=== PATIENT | female | born 2000 | race Caucasian/White ===

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

== ENCOUNTER 2018-03-02 17:22 | Emergency (ER) | payer OTHER, MEDICAID | END 2018-03-02 17:39 | disposition home or self-care (01) | LOC: M ED 17:22 | DX: Z32.01 Encounter for pregnancy test, result positive (principal) | CPT/HCPCS: 81025 ==

== ENCOUNTER → 2018-04-04 | Outpatient (CLI) | payer OTHER ==
[2018-04-04 10:40] LABS: BASO % 0.3 % (0.0-1.0); EOS # 0.1 10^3/uL (0.0-0.50); EOS % 1.2 % (0.0-3.0); HEMATOCRIT 38.8 % (36.0-47.0); HEMOGLOBIN 12.9 g/dl (12.0-15.5); IMMATURE GRANULOCYTE % 0.2 % (0-3.0); LYMPH # 2.7 10^3/uL (1.5-6.5); LYMPH % 28.9 % (24.0-44.0); MEAN CORPUSCULAR HEMOGLOBIN 28.2 pg (27.0-33.0); MEAN CORPUSCULAR HGB CONC 33.2 g/dl (32.0-36.5); MEAN CORPUSCULAR VOLUME 84.7 fl (80.0-96.0); MONO # 0.5 10^3/uL (0.0-0.8); MONO % 5.8 % (0.0-5.0); NEUTROPHILS % 63.6 % (36.0-66.0); PLATELET COUNT, AUTOMATED 269 10^3/uL (150-450); RED BLOOD COUNT 4.58 10^6/uL (4.00-5.40); WHITE BLOOD COUNT 9.4 10^3/uL (4.0-10.0)
[2018-04-04 11:09] LABS: ALBUMIN 3.3 GM/DL (3.2-5.2); ALBUMIN/GLOBULIN RATIO 0.92 (1.00-1.93); ALKALINE PHOSPHATASE 54 U/L (45-117); ALT/SGPT 17 U/L (12-78); ANION GAP 9 MEQ/L (8-16); AST/SGOT 9 U/L (7-37); BILIRUBIN,TOTAL 0.2 MG/DL (0.2-1.0); BLOOD UREA NITROGEN 5 MG/DL (7-18); CALCIUM LEVEL 8.6 MG/DL (8.5-10.1); CARBON DIOXIDE LEVEL 24 MEQ/L (21-32); CHLORIDE LEVEL 109 MEQ/L (98-107); CREATININE FOR GFR 0.59 MG/DL (0.55-1.30); FREE T4 1.07 NG/DL (0.78-1.33); GLUCOSE CHALLENGE TEST 1 HOUR 77 MG/DL (LESS THAN 140); GLUCOSE, FASTING 77 MG/DL (70-100); POTASSIUM SERUM 3.7 MEQ/L (3.5-5.1); SODIUM LEVEL 142 MEQ/L (136-145); THYROID STIMULATING HORMONE 0.581 uIU/ML (0.463-3.98); TOTAL PROTEIN 6.9 GM/DL (6.4-8.2)
[2018-04-04 11:15] LABS: ESTIMATED AVERAGE GLUCOSE 108 MG/DL (60-110); HEMOGLOBIN A1c 5.4 %
[2018-04-04 11:21] LABS: RUBELLA IgG QUALITATIVE IMMUNE (IMMUNE)
[2018-04-04 11:22] LABS: HBsAg Prenatal NEGATIVE (NEGATIVE)
[2018-04-04 11:50] LABS: HEPATITIS C VIRUS ABY INDEX 0.3 INDEX (<0.8); HIV 1&2 SCREEN CENTAUR NEGATIVE (NEGATIVE)
[2018-04-04 12:09] LABS: CHLAMYDIA DNA AMPLIFICATION NEGATIVE (NEGATIVE); GC DNA AMPLIFICATION NEGATIVE (NEGATIVE)
== END ==
LOC: M LAB 08:40
DX: Z36.89 Encounter for other specified antenatal screening (principal); Z3A.09 9 weeks gestation of pregnancy
CPT/HCPCS: 82950

== ENCOUNTER → 2018-06-06 | Outpatient (CLI) | payer OTHER | LOC: M RAD 15:26 | DX: Z34.82 Encounter for supervision of other normal pregnancy, second trimester (principal); Z36.89 Encounter for other specified antenatal screening; Z3A.18 18 weeks gestation of pregnancy | CPT/HCPCS: 76811 ==

== ENCOUNTER → 2018-07-17 | Outpatient (CLI) | payer OTHER | LOC: M RAD 10:07 | DX: O32.1XX0 Maternal care for breech presentation, not applicable or unspecified (principal); Z36.89 Encounter for other specified antenatal screening; Z3A.24 24 weeks gestation of pregnancy; O28.8 Other abnormal findings on antenatal screening of mother | CPT/HCPCS: 76816 ==

== ENCOUNTER → 2018-08-13 | Outpatient (CLI) | payer OTHER ==
[2018-08-13 13:24] LABS: HEMATOCRIT 36.2 % (36.0-47.0); MEAN CORPUSCULAR HEMOGLOBIN 29.7 pg (27.0-33.0); MEAN CORPUSCULAR HGB CONC 33.1 g/dl (32.0-36.5); MEAN CORPUSCULAR VOLUME 89.6 fl (80.0-96.0); PLATELET COUNT, AUTOMATED 294 10^3/uL (150-450); RED BLOOD COUNT 4.04 10^6/uL (4.00-5.40); RED CELL DISTRIBUTION WIDTH 12.7 % (11.5-14.5); WHITE BLOOD COUNT 12.6 10^3/uL (4.0-10.0)
[2018-08-14 08:15] LABS: TYPE AND SCREEN 1 1
== END ==
LOC: M SMT 11:36
DX: Z36.89 Encounter for other specified antenatal screening (principal)
CPT/HCPCS: 85027

== ENCOUNTER → 2018-09-17 | Outpatient (CLI) | payer OTHER ==
[~2018-09-17] MED LIST: AUGM500T34 PO; EMER1CHW PO; MEDR1VL IM; NORCOTAB PO; PRENTAB7 PO; SUCR1TA PO
--- NOTE | 2018-09-17 10:01 | REP ---
OBSTETRIC SONOGRAPHY: HISTORY: Supervision of . Size date discrepancy, size greater than dates. FINDINGS: Scanning through the gravid uterus demonstrates a viable single intrauterine gestation in a cephalic lie. motion is observed and heart rate is recorded at 135 beats per minute. Anterior grade 2 placenta is seen without evidence of previa or abruption. Amniotic fluid is subjectively normal. Closed cervical length is 4.0 cm. No extrauterine abnormalities observed. There has been appropriate interval growth since prior exam. Biometry Chart: BPD 8.7 cm = 35 weeks 1 day HC 31.3 cm = 35 weeks 0 days AC 32.1 cm = 36 weeks 0 days FL 6.5 cm = 33 weeks 4 days HL 5.8 cm = 33 weeks 4 days HC/AC ratio normal 0.1. Cephalic index normal 0.79. Estimated weight 2612 grams, 5 pounds 12 ounces, 76th percentile for 33 weeks 4 days. DMITRI 19.6 cm. IMPRESSION: Viable single intrauterine gestation at 34 weeks 5 days by today's composite sonographic criteria. Expected gestational age estimate based on prior sonography is 34 weeks 6 days. YESSICA by prior sonography October 23, 2018. There is evidence of appropriate interval growth. Electronically Signed by Gunnar Kulkarni MD 09/17/2018 10:22 A
== END ==
LOC: M RAD 08:34
PROVIDERS: ATTEND Advanced Practice Midwife
DX: O26.843 Uterine size-date discrepancy, third trimester (principal); Z3A.34 34 weeks gestation of pregnancy

== ENCOUNTER → 2018-10-02 | Outpatient (REF) | payer OTHER ==
[~2018-10-02] MED LIST changes: +MAPA500T2 PO
== END ==
LOC: M LAB REF 13:39
PROVIDERS: ATTEND Advanced Practice Midwife
DX: Z34.83 Encounter for supervision of other normal pregnancy, third trimester (principal)

== ENCOUNTER 2018-10-05 12:26 | Outpatient (CLI) | payer OTHER ==
[~2018-10-05] VITALS: Ht 162.6 cm; Wt 129.0 kg
[~2018-10-05 12:26] MED LIST changes: -MAPA500T2 PO
[2018-10-05 12:44] VITALS: BP 114/60
[2018-10-05] MEDS ORDERED: MAPA500T2 PO (12:50)
--- NOTE | 2018-10-05 14:15 | REP ---
Clinical: Vaginal bleeding at 30 weeks . Comparison: 09/17/2018 . Findings: Examination demonstrates a single live intrauterine in cephalic presentation. motion is identified by technologist. Placenta is noted anterior and grade II without evidence for placenta previa or abruption. Amniotic fluid volume is normal. Cervix appears closed. No evidence for nuchal cord. Gestational age by LMP 36 weeks 1 day with YESSICA 11/01/2018 . Gestational age by current measurements 38 weeks 2 days with YESSICA 10/17/2018 . Estimated weight 3480 grams (80th percentile based age by current measurements; 93rd percentile based on age by LMP). FHR equals 141 beats per minute. Amniotic fluid index: 14.7 cm (7.7 - 24.9) Biophysical profile score: 8/8 Umbilical cord SD ratio: 1.72 (1.96 - 2.96). Impression: 1. Single live intrauterine in cephalic presentation demonstrating relatively normal appropriate growth. 2. Anterior grade II placenta without previa or abruption. Electronically Signed by Tam Barfield MD 10/05/2018 02:07 P
[2018-10-05 14:34] VITALS: BP 124/67
--- NOTE | 2018-10-05 14:39 | IPNPDOC ---
Text Note Date of Service The patient was seen on 10/05/18. NOTE Outpatient 18yo G1 YESSICA 11/01/18. Presents @ 36w2d with reports of blood "pouring out while on the toilet." Denies LOF or regular UC. Fetus active. Pt reports having sex prior to episode of bleeding. No apparent distress, smiling and talking with family Cat I tracing, no UC Spec exam, small amount old blood in vault. Cervix visually LTC. BPP 8/8, DMITRI 14.7, no evidence previa or abruption Pt reassured. Discharged home with instructions to keep next appt on Monday. VS,Fishbone, I+O VS, Fishbone, I+O Vital Signs Date Time Temp Pulse Resp B/P (MAP) Pulse Ox O2 Delivery O2 Flow Rate FiO2 10/05/18 12:44 96.2 98 18 114/60 (78) Adri Pope CNM Oct 05, 2018 14:39
== END 2018-10-05 14:52 | disposition home or self-care (01) ==
LOC: M LDO 12:26
PROVIDERS: ATTEND Advanced Practice Midwife
DX: O26.853 Spotting complicating pregnancy, third trimester (principal); Z3A.36 36 weeks gestation of pregnancy

== ENCOUNTER 2018-10-23 03:53 | Inpatient (IN) | payer OTHER ==
[~2018-10-23] VITALS: Ht 162.6 cm; Wt 131.6 kg
[2018-10-23] VITALS (39 sets, daily range): BP systolic 119–154; BP diastolic 55–93
[~2018-10-23 03:53] MED LIST changes: +MAPA500T2 PO
[2018-10-23] MEDS ORDERED: PRENTAB9 PO (04:23)
[2018-10-23] MEDS ORDERED: LACTATED RINGER'S 1000 ML IV STA (04:56)
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
[2018-10-23 05:52] LABS: HEMATOCRIT 31.6 % (36.0-47.0); HEMOGLOBIN 10.5 g/dl (12.0-15.5); MEAN CORPUSCULAR HEMOGLOBIN 28.5 pg (27.0-33.0); MEAN CORPUSCULAR HGB CONC 33.2 g/dl (32.0-36.5); MEAN CORPUSCULAR VOLUME 85.9 fl (80.0-96.0); PLATELET COUNT, AUTOMATED 314 10^3/uL (150-450); RED BLOOD COUNT 3.68 10^6/uL (4.00-5.40); WHITE BLOOD COUNT 14.2 10^3/uL (4.0-10.0)
[2018-10-23] MEDS: miSOPROStol 50 MCG 1/2 TAB (S0191) PO SCH ×2 (06:01→10:32)
[2018-10-23] MEDS ORDERED: BUTORPHANOL 2 MG/ML INJ (J0595) IV ONE (09:00)
[2018-10-23] MEDS ORDERED: PROMETHAZINE INJ 25 MG/ML VIAL (J2550) IV ONE (09:00)
[2018-10-23] MEDS ORDERED: FENTANYL 2MCG/ML ROPIVACAINE 0.2% IN 0.9% NACL 100ML IVBAG As Ordered ONE (14:10)
[2018-10-23] MEDS ORDERED: OXYTOCIN DRIP 30 UNITS in APPROPRIATE DILUENT 1 EA IV SCH ×2 (14:15→20:59)
[2018-10-23] MEDS ORDERED: LR 1,000 ML IV SCH (14:15)
[2018-10-23] MEDS ORDERED: LACTATED RINGER'S 1000 ML IV ONE (14:15)
[2018-10-23] MEDS ORDERED: EPIDURAL COMMENT XX SCH (14:30)
[2018-10-23] MEDS ORDERED: EPIDURAL/PCA KEYS XX PRN (14:30)
[2018-10-23] MEDS ORDERED: LACTATED RINGER'S 1000 ML IV PRN (14:30)
[2018-10-23] MEDS ORDERED: ONDANSETRON 4MG/2ML VIAL (J2405) IV PRN (14:30)
[2018-10-23] MEDS ORDERED: NALOXONE INJ 0.4 MG/1 ML VIAL (J2310) IV PRN (14:30)
[2018-10-23] MEDS ORDERED: FENTANYL/ROPIVACAINE/NACL BAG 100 ML EPIDURAL SCH (14:30)
[2018-10-23] MEDS ORDERED: diphenhydrAMINE INJ 50MG/ML VIAL (J1200) IV PRN (14:30)
[2018-10-23] MEDS ORDERED: REFRIGERATOR IV KEYS XX PRN (14:30)
[2018-10-23] MEDS ORDERED: ePHEDrine SULFATE 25 MG/5 ML(5MG/ML) SYRINGE IV PRN (14:30)
[2018-10-23 20:51] LABS: CORD GAS ABE A -4.2; CORD GAS HCO3 A 23.6 MEQ/L; CORD GAS O2 SAT A 58.5 %; CORD GAS PCO2 A 52.9 mmHg; CORD GAS PH A 7.267 UNITS; CORD GAS PO2 A 26.7 mmHg; CORD GAS TCO2 A 25.2 MEQ/L
[2018-10-23 20:55] LABS: CORD GAS ABE V -6.6; CORD GAS HCO3 V 19.1 MEQ/L; CORD GAS PH V 7.307 UNITS; CORD GAS PO2 V 40.5 mmHg; CORD GAS SBC V 18.9 MEQ/L; CORD GAS TCO2 V 20.3 MEQ/L
[2018-10-23] MEDS ORDERED: METHYLERGONOVINE MALEATE 0.2 MG TAB PO PRN (21:00)
[2018-10-23] MEDS ORDERED: DOCUSATE SODIUM 100 MG CAP PO PRN (21:00)
[2018-10-23] MEDS ORDERED: RHOGAM 300 MCG (1500 IU) INJ (J2790) IM SCH (21:00)
[2018-10-23] MEDS ORDERED: DIBUCAINE 1% OINTMENT 30GM TOP PRN (21:00)
[2018-10-23] MEDS ORDERED: MEASLES,MUMPS,RUBELLA VACCINE INJ (MMR-II) (90707) SC SCH (21:00)
--- NOTE | 2018-10-23 21:36 | DN ---
DATE OF PROCEDURE: 10/23/2018 GENDER: Male. SCORES: 9 and 9. WEIGHT: 8 pounds 0 ounces or 3620 grams ESTIMATED BLOOD LOSS: 300 mL. LACERATIONS: First-degree midline laceration. ANESTHESIA: Epidural COUNTS: Five laparotomy sponges accounted for prior to and after delivery. Three sharps removed from delivery field. CORD GAS: 7.26, 7.30, base excess is -4.2, -6.6. MODE OF DELIVERY: Vacuum-assisted vaginal delivery. INDICATION: Category 2 heart rate tracing. DELIVERY NOTE: On 10/23/2018, Ms. Ferraro, a 18-year-old, 1, now para 1 had a vacuum-assisted vaginal delivery of a live born male , scores of 9 and 9. Weight was 3620 grams or 8 pounds 0 ounces. Time of was 2036 hours. Indication was persistent category 2 tracing. The patient was verbally consented for an operative delivery. A vacuum was placed, and with one set of maternal pushing effort, head was delivered right occiput anterior (MANI), followed by delivery of left anterior shoulder, right posterior shoulder and corpus. was handed to the mom with a good cry. Cord was clamped times two and was cut by the father of the baby under my direction. Cord gases were obtained. Placenta was drained and delivered grossly intact. A premixed bag of 500 mL of normal saline with 30 units of Pitocin was then bolused along with uterine massage until the uterus was firm. On inspection, there was a first-degree midline laceration, which was repaired with #3-0 Vicryl Rapide. On re-inspection, the cervix, vagina, and perineum was grossly intact and hemostatic. Mom and baby recovering in stable condition. The couple has decided to name their son
[2018-10-23] MEDS: IBUPROFEN 800 MG TAB PO PRN (23:55)
[2018-10-24] MEDS: ACETAMINOPHEN 500 MG TAB PO PRN ×2 (05:20→15:45)
[2018-10-24 06:15] VITALS: BP 133/69
[2018-10-24] MEDS: PRENATAL VITAMINS CHEWABLE TABLET PO SCH (10:11)
[2018-10-24] MEDS: IBUPROFEN 800 MG TAB PO PRN ×2 (10:12→23:24)
[2018-10-24 17:45] VITALS: BP 129/65
[2018-10-25 05:48] VITALS: BP 94/50
[2018-10-25] MEDS: PRENATAL VITAMINS CHEWABLE TABLET PO SCH (07:59)
[2018-10-25] MEDS: IBUPROFEN 800 MG TAB PO PRN (08:03)
[2018-10-25] MEDS ORDERED: IBUP-1114 PO (09:26)
[2018-10-25] MEDS: ACETAMINOPHEN 500 MG TAB PO PRN (13:02)
[2018-10-26] MEDS ORDERED: IBUP-1022 PO (01:18)
== END 2018-10-25 13:05 | disposition home or self-care (01) | DRG 560 ==
LOC: M LDO 03:53 → M LDI 04:31 → M OBS 23:08
PROVIDERS: ADMIT Advanced Practice Midwife; ATTEND Obstetrics & Gynecology
PROC: 10D07Z6 Extraction of Products of Conception, Vacuum, Via Natural or Artificial Opening (ICD-10-PCS; principal; 2018-10-23)
PROC: 0HQ9XZZ Repair Perineum Skin, External Approach (ICD-10-PCS; 2018-10-23)
DX: O42.02 Full-term premature rupture of membranes, onset of labor within 24 hours of rupture (principal); O70.0 First degree perineal laceration during delivery; Z3A.38 38 weeks gestation of pregnancy; Z37.0 Single live birth

== ENCOUNTER 2018-10-25 22:48 | Emergency (ER) | payer OTHER ==
[~2018-10-25] VITALS: Ht 162.6 cm; Wt 127.2 kg
[~2018-10-25 22:48] MED LIST changes: +IBUP-1114 PO; +PRENTAB9 PO
[2018-10-25] MEDS ORDERED: ONDANSETRON 4MG/2ML VIAL (J2405) IV ONE (23:15)
[2018-10-25] MEDS ORDERED: MORPHINE 4 MG/ML 1ML VIAL/SYRINGE (J2270) IV PRN (23:15)
[2018-10-25 23:34] LABS: BASO % 0.2 % (0.0-1.0); EOS # 0.2 10^3/uL (0.0-0.50); EOS % 1.7 % (0.0-3.0); HEMATOCRIT 31.3 % (36.0-47.0); LYMPH # 3.4 10^3/uL (1.5-6.5); MEAN CORPUSCULAR HEMOGLOBIN 28.6 pg (27.0-33.0); MEAN CORPUSCULAR HGB CONC 31.9 g/dl (32.0-36.5); MEAN CORPUSCULAR VOLUME 89.4 fl (80.0-96.0); MONO % 7.4 % (0.0-5.0); NEUTROPHILS # 8.7 10^3/uL (1.8-7.7); NEUTROPHILS % 65.3 % (36.0-66.0); PLATELET COUNT, AUTOMATED 270 10^3/uL (150-450); WHITE BLOOD COUNT 13.4 10^3/uL (4.0-10.0)
[2018-10-25] MEDS ORDERED: ISOVUE-370 76% 100ML VIAL (Q9967) As Ordered ONE (23:54)
[2018-10-26 00:05] LABS: BLOOD UREA NITROGEN 14 MG/DL (7-18); CALCIUM LEVEL 8.3 MG/DL (8.5-10.1); CARBON DIOXIDE LEVEL 25 MEQ/L (21-32); CHLORIDE LEVEL 111 MEQ/L (98-107); CPK CREATINE PHOSPHOKINASE 111 U/L (26-192); CREATININE FOR GFR 0.88 MG/DL (0.55-1.30); GLUCOSE, FASTING 77 MG/DL (70-100); MB/CK RELATIVE INDEX 1.62 (< OR =4); POTASSIUM SERUM 3.9 MEQ/L (3.5-5.1); SODIUM LEVEL 145 MEQ/L (136-145); TROPONIN I < 0.02 NG/ML (< 0.10)
[2018-10-26 00:40] LABS: NT-PRO BNP 116 PG/ML (<125)
--- NOTE | 2018-10-26 01:02 | REPVR ---
EXAM: CT Angiography Chest With Contrast EXAM DATE/TIME: 10/25/2018 11:13 PM CLINICAL HISTORY: 18 years old, female; Pain; Chest pain; Type not specified; Patient HX: Post ; Additional info: R/O pe TECHNIQUE: Axial computed tomographic angiography images of the chest with intravenous contrast using CT angiography protocol. All CT scans at this facility use at least one of these dose optimization techniques: automated exposure control; mA and/or kV adjustment per patient size (includes targeted exams where dose is matched to clinical indication); or iterative reconstruction. Coronal and sagittal reformatted images were created and reviewed. MIP reconstructed images were created and reviewed. CONTRAST: Contrast Material: 75 ml of iso; Contrast Route: ac COMPARISON: CR PORTABLE CHEST X-RAY 10/25/2018 11:22 PM FINDINGS: Limitations: Detail/sensitivity limited by artifacts. Pulmonary arteries: No pulmonary emboli. Aorta: No aortic aneurysm. No aortic dissection. Lungs: No focal infiltrate, consolidation, or mass. Pleural space: No pneumothorax. No pleural effusion. Heart: No cardiomegaly. No pericardial effusion. Lymph nodes: Unremarkable. No enlarged lymph nodes. Bones/joints: Unremarkable. No acute fracture. Soft tissues: Unremarkable. IMPRESSION: No acute findings. No pulmonary embolism. Electronically signed by: Malik Wise On 10/26/2018 01:02:36 AM
[2018-10-26] MEDS ORDERED: IBUP-1022 PO (01:18)
[2018-10-26 01:54] VITALS: BP 138/71
--- NOTE | 2018-10-26 08:06 | ECGEPIP ---
Stationary ECG Study [facility] - ED Test Date: 2018-10-25 Pat Name: LEO GARCIA Department: Room: - Gender: F Food Manager: EARLE : 2000 Requested By: LUIS A Bhardwaj Order Number: [id number] Reading MD: Gerardo Root Measurements Intervals [place] Rate: 74 P: 42 TN: 150 QRS: 50 QRSD: 87 T: 30 QT: 353 QTc: 393 Interpretive Statements SINUS RHYTHM WITH SINUS ARRHYTHMIA SIMILAR TO 03/28/16 Electronically Signed On 10-26-2018 8:06:04 EST by Gerardo Root
--- NOTE | 2018-10-26 12:02 | REP ---
Clinical: Acute chest pain . Comparison: None . Findings: The mediastinum and cardiac silhouette are stable and within normal limits for portable technique. The lung tom are clear without acute consolidation, effusion, or pneumothorax. Skeletal structures are intact. Impression: No acute cardiopulmonary process appreciated. Electronically Signed by Tam Barfield MD 10/26/2018 11:54 A
== END 2018-10-26 01:56 | disposition home or self-care (01) ==
LOC: M ED 22:48
DX: R07.89 Other chest pain (principal)
CPT/HCPCS: 36415; 71045; 71275; 80048; 82550; 82553; 83880; 85025; 93005; 93041; 94760; 96374; 96375; 99285; J2270; J2405; Q9967

== ENCOUNTER 2018-11-30 18:01 | Inpatient (IN) | payer OTHER ==
[~2018-11-30] VITALS: Ht 165.1 cm; Wt 117.8 kg
[~2018-11-30 18:01] MED LIST changes: +IBUP-1022 PO
[2018-11-30] MEDS ORDERED: NS 1,000 ML IV ONE (18:45)
[2018-11-30 19:06] LABS: BASO % 0.4 % (0.0-1.0); EOS # 0.2 10^3/uL (0.0-0.50); EOS % 1.8 % (0.0-3.0); HEMATOCRIT 38.1 % (36.0-47.0); HEMOGLOBIN 12.2 g/dl (12.0-15.5); LYMPH # 3.2 10^3/uL (1.5-6.5); MEAN CORPUSCULAR HEMOGLOBIN 28.3 pg (27.0-33.0); MEAN CORPUSCULAR VOLUME 88.4 fl (80.0-96.0); MONO # 0.6 10^3/uL (0.0-0.8); MONO % 5.7 % (0.0-5.0); NEUTROPHILS # 6.9 10^3/uL (1.8-7.7); NEUTROPHILS % 62.8 % (36.0-66.0); PLATELET COUNT, AUTOMATED 320 10^3/uL (150-450); RED BLOOD COUNT 4.31 10^6/uL (4.00-5.40)
[2018-11-30 19:30] LABS: ALBUMIN 3.5 GM/DL (3.2-5.2); ALT/SGPT 72 U/L (12-78); BILIRUBIN,DIRECT 0.3 MG/DL (0.0-0.2); BILIRUBIN,TOTAL 0.5 MG/DL (0.2-1.0); BLOOD UREA NITROGEN 9 MG/DL (7-18); CALCIUM LEVEL 8.8 MG/DL (8.5-10.1); CARBON DIOXIDE LEVEL 26 MEQ/L (21-32); CHLORIDE LEVEL 108 MEQ/L (98-107); CREATININE FOR GFR 0.87 MG/DL (0.55-1.30); GAMMA GLUTAMYLTRANSPEPTIDASE 586 U/L (5-55); GLUCOSE, FASTING 88 MG/DL (70-100); LIPASE 2002 U/L (73-393); POTASSIUM SERUM 3.8 MEQ/L (3.5-5.1); SODIUM LEVEL 143 MEQ/L (136-145); TOTAL PROTEIN 6.8 GM/DL (6.4-8.2)
[2018-11-30] MEDS ORDERED: KETOROLAC 30 MG/ML VIAL (J1885) IV ONE (20:00)
--- NOTE | 2018-11-30 20:30 | REP ---
Clinical: Acute abdominal pain. Technique: Adams scale ultrasound using curved array transducer. Findings: The liver and pancreas are normal in contour, size, and echogenicity without focal hepatic or pancreatic lesions identified. The gallbladder demonstrates small gallstones/gravel without Oliveira's sign, wall thickening or pericholecystic fluid. No biliary ductal dilatation is appreciated, and the common bile duct measures 4.6 mm diameter. The right kidney is normal in reniform shape without hydronephrosis and measures 11.3 x 5.0 x 4.8 cm. No ascites. Visualized portions of the abdominal aorta normal. Impression: Cholelithiasis without sonographic evidence for acute cholecystitis. Electronically Signed by Tam Barfield MD 11/30/2018 08:22 P
[2018-11-30] MEDS ORDERED: MORPHINE 4 MG/ML 1ML VIAL/SYRINGE (J2270) IV PRN (22:00)
[2018-11-30] MEDS ORDERED: NS 2,000 ML IV ONE (22:00)
[2018-11-30] MEDS ORDERED: ONDANSETRON 4MG/2ML VIAL (J2405) IV PRN (22:00)
[2018-11-30] MEDS ORDERED: IBUP200C25 PO (23:05)
[2018-12-01] MEDS: LR 1,000 ML IV SCH ×5 (00:47→12:45)
[2018-12-01 00:55] VITALS: BP 132/75
[2018-12-01] MEDS: HEPARIN SOD (PORCINE) 5000 UNITS/ML VIAL SC SCH ×3 (05:27→21:01)
[2018-12-01 06:00] VITALS: BP 118/55
[2018-12-01 06:39] LABS: HEMATOCRIT 35.6 % (36.0-47.0); MEAN CORPUSCULAR HEMOGLOBIN 27.5 pg (27.0-33.0); MEAN CORPUSCULAR HGB CONC 30.9 g/dl (32.0-36.5); PLATELET COUNT, AUTOMATED 247 10^3/uL (150-450); WHITE BLOOD COUNT 7.7 10^3/uL (4.0-10.0)
[2018-12-01 07:13] LABS: ALBUMIN 2.5 GM/DL (3.2-5.2); ALT/SGPT 69 U/L (12-78); BILIRUBIN,TOTAL 0.3 MG/DL (0.2-1.0); BLOOD UREA NITROGEN 7 MG/DL (7-18); CALCIUM LEVEL 7.8 MG/DL (8.5-10.1); CARBON DIOXIDE LEVEL 25 MEQ/L (21-32); CHLORIDE LEVEL 112 MEQ/L (98-107); CHOLESTEROL LEVEL 129 MG/DL (<200); CHOLESTEROL RISK RATIO 2.931 (<5); CREATININE FOR GFR 0.69 MG/DL (0.55-1.30); GLUCOSE, FASTING 84 MG/DL (70-100); HDL CHOLESTEROL 44 MG/DL (>40); LDL CHOLESTEROL 73 MG/DL (<100); NON-HDL-C 85 MG/DL; POTASSIUM SERUM 3.7 MEQ/L (3.5-5.1); SODIUM LEVEL 146 MEQ/L (136-145); TOTAL PROTEIN 5.6 GM/DL (6.4-8.2); TRIGLYCERIDES LEVEL 59 MG/DL (<150)
--- NOTE | 2018-12-01 08:49 | HPE ---
DATE OF ADMISSION: 11/30/2018 CHIEF COMPLAINT: Right upper quadrant pain, epigastric pain radiating to the back associated with nausea and vomiting. HISTORY OF PRESENT ILLNESS: The patient is a 18-year-old female with no significant past medical history, she has a history of cholelithiasis and biliary colic. She has an outpatient appointment to see Dr. Lopez on 12/25 for elective cholecystectomy. She presents tot he emergency room with four days of right upper quadrant pain radiating to the epigastric area and into the back, associated with nausea, vomiting, inability to tolerate by mouth intake over the last four days. She denies any history of alcohol use or alcohol abuse. On admission, her liver function tests indicate a direct bilirubin of 0.3, which is only mildly elevated, alkaline phosphatase of 317 and a GGT of 586, AST only mildly elevated at 87. The right upper quadrant ultrasound shows no gallstones, no choledocholithiasis; however, will get an MRCP to ensure this is not gallstone pancreatitis. The patient was made aware of the fact that if she has gallstone pancreatitis she is at risk for developing cholangitis at which point in time an ERCP may need to be completed to remove the obstruction; however, for now, she can be managed conservatively and have an MRCP completed to assess for any choledocholithiasis. She denies any chest pain, cough, shortness of breath, fevers or chills, urinary symptoms. PAST MEDICAL HISTORY: None. PAST SURGICAL HISTORY: Tonsillectomy and adenoidectomy. ALLERGIES: No known drug allergies. SOCIAL HISTORY: Denies tobacco, alcohol or illicit drug use. FAMILY HISTORY: Noncontributory. REVIEW OF SYSTEMS: A 12 point review of systems was completed, all of which were negative except those listed in the history of present illness. VITAL SIGNS ON ADMISSION: Temperature 98, pulse rate 93, respirations 16, blood pressure 119/72, satting at 98% on room air. PHYSICAL EXAMINATION: GENERAL: She is well nourished, in no apparent distress. HEAD: Normocephalic, atraumatic. EYES: Extraocular movements are intact. Pupils equal, round and reactive to light. NECK: Supple. No jugular venous pressure (JVP). LUNGS: Clear to auscultation. No crackles, wheezes, rales or rhonchi. CARDIOVASCULAR: Regular rate and rhythm. Normal S1 and S2. No murmurs, gallops, or rubs. ABDOMEN: Soft, nontender, nondistended. Positive bowel sounds. No rebound or guarding. EXTREMITIES: No pitting edema or calf tenderness. SKIN: Intact. No rashes, lesions or breakdowns. NEUROLOGICAL EXAM: She is alert and oriented times three. No focal neurological deficits appreciated on exam. LABS AND IMAGING COMPLETED IN THE EMERGENCY DEPARTMENT: White count of 11, hemoglobin and hematocrit of 12/38, platelet count of 320. Chemistry shows a BUN and creatinine of 9/0.87. Direct bilirubin of 0.3, GGT of 586, AST of 87, alkaline phosphatase of 317, ALT within normal limits. Lipase 2002. Urinalysis shows 7 WBCs, however multiple squamous epithelial cells indicating that this is a dirty catch. Right upper quadrant ultrasound shows cholelithiasis without sonographic evidence of acute cholelithiasis. No biliary ductal dilatation is appreciated and common bile duct is normal at 4.6 mm. ASSESSMENT/PLAN: Acute pancreatitis. Calcium within normal limits. No history of alcohol abuse. Will assess for hypertriglyceridemia. There is some worry with the elevated GGT and mild AST and alkaline phosphatase that this may be an episode of mild gallstone pancreatitis. Will trend the LFTs. Will get an MRCP to further evaluate. If the LFTs continue to trend up and the patient's pain continues to worsen with conservative treatment, she may need to be transferred for ERCP. This was explained to the patient. She said she recently had a baby and would like to remain closer to home, so for now will treat conservatively with IV fluids, morphine, Zofran, nothing by mouth advance diet as tolerated. Will complete the MRCP. The patient will need Dr. Lopez consult in the morning for possible elective cholecystectomy. Supportive deep vein thrombosis (DVT) prophylaxis. Heparin subcu. Gastrointestinal (GI) prophylaxis. Not indicated. Diet. Nothing by mouth for now, advance as tolerated.
[2018-12-01 14:00] VITALS: BP 143/70
[2018-12-01 16:29] LABS: LIPASE 209 U/L (73-393)
[2018-12-01] MEDS: NS 0.45% 1,000 ML IV SCH (17:00)
--- NOTE | 2018-12-01 20:10 | REP ---
Clinical: Rule out gallstone pancreatitis. Technique: Standard noncontrast MRCP sequencing. Findings: Innumerable small gallstones are appreciated without pericholecystic inflammatory changes to suggest acute cholecystitis. Intrahepatic and extrahepatic biliary system including cystic duct appear normal and without dilatation, luminal defect or obstruction. No evidence for choledocholithiasis. No significant peripancreatic inflammatory changes are appreciated. Impression: Cholelithiasis. Otherwise essentially normal MRCP examination. Electronically Signed by Tam Barfield MD 12/01/2018 08:01 P
[2018-12-01 22:00] VITALS: BP 124/64
[2018-12-02] MEDS: NS 0.45% 1,000 ML IV SCH (00:10)
[2018-12-02] MEDS: HEPARIN SOD (PORCINE) 5000 UNITS/ML VIAL SC SCH ×2 (05:37→14:00)
[2018-12-02 06:00] VITALS: BP 108/59
[2018-12-02 06:40] LABS: HEMATOCRIT 34.6 % (36.0-47.0); HEMOGLOBIN 10.8 g/dl (12.0-15.5); MEAN CORPUSCULAR HEMOGLOBIN 27.3 pg (27.0-33.0); MEAN CORPUSCULAR HGB CONC 31.2 g/dl (32.0-36.5); MEAN CORPUSCULAR VOLUME 87.4 fl (80.0-96.0); PLATELET COUNT, AUTOMATED 263 10^3/uL (150-450); RED BLOOD COUNT 3.96 10^6/uL (4.00-5.40)
--- NOTE | 2018-12-02 06:44 | IPN ---
DATE: 12/01/2018 SUBJECTIVE: Patient seen and examined in the room today. The patient stated her abdominal pain showed improvement since admission. Denied any fevers or chills. OBJECTIVE: VITAL SIGNS: Temperature is 98.2, pulse 57, respirations 18, blood pressure 118/55, pulse oximetry 96% in room air. GENERAL: Patient is awake, alert and comfortable. HEENT: Normocephalic, atraumatic. Extraocular motors grossly intact. CARDIOVASCULAR: Positive S1 and S2. Regular rate. LUNGS: Clear to auscultation bilaterally. ABDOMEN: Soft, nontender, nondistended. Bowel sounds present. EXTREMITIES: No edema. LABORATORY DATA: WBC is 7.7, hemoglobin 11, hematocrit 35.6, platelet count is 247. Sodium is 146, potassium 3.7, chloride 112, carbon dioxide 25, BUN 7, creatinine 0.69, fasting glucose is 84, calcium is 7.8, total bilirubin 0.3, AST 54, ALT 69, alkaline phosphatase 229, total protein 5.6, albumin 2.5, triglycerides 59, total cholesterol is 129, LDL is 73, lipase is 209. IMPRESSION/PLAN: 1. Acute pancreatitis. Patient is currently nothing by mouth, started on IV fluid. Pain shows significant improvement. I will deescalate IV as tolerated and start on clear liquids at this moment. The patient denies any alcohol usage. Liver panel reviewed and the patient had an abdominal ultrasound. The patient had an MRCP but unfortunately the MRCP report is not available at this moment. The patient has a history of significant gallstones. The patient originally has a scheduled cholecystectomy with Dr. Lopez on December 25, 2018. I will discuss the case with general surgery to see if the patient would benefit from cholecystectomy during this hospitalization. 2. Deep vein thrombosis (DVT) prophylaxis. Heparin.
[2018-12-02 07:16] LABS: ALBUMIN 2.7 GM/DL (3.2-5.2); ALT/SGPT 47 U/L (12-78); BILIRUBIN,TOTAL 0.3 MG/DL (0.2-1.0); BLOOD UREA NITROGEN 6 MG/DL (7-18); CALCIUM LEVEL 8.4 MG/DL (8.5-10.1); CARBON DIOXIDE LEVEL 28 MEQ/L (21-32); CHLORIDE LEVEL 110 MEQ/L (98-107); CREATININE FOR GFR 0.79 MG/DL (0.55-1.30); GLUCOSE, FASTING 83 MG/DL (70-100); LIPASE 78 U/L (73-393); POTASSIUM SERUM 3.5 MEQ/L (3.5-5.1); SODIUM LEVEL 144 MEQ/L (136-145)
--- NOTE | 2018-12-03 07:01 | DSES ---
DATE OF ADMISSION: 11/30/2018 DATE OF DISCHARGE: 12/02/2018 DISCHARGE DIAGNOSIS: Acute pancreatitis secondary to gall stones. . HOSPITAL COURSE: The patient is a 18-year-old female who presented to [facility] on November 30, 2018 with the complaint of right upper quadrant pain with radiation to the back and associated with nausea and vomiting. Initially the patient was found to have acute pancreatitis. Initially the patient was placed nothing by mouth and intravenous (IV) support. Pain medications were adjusted according to the patient's needs. With conservative medical management the patient had diminished rapid improvement of her gastrointestinal (GI) symptoms. IV fluids were discontinued. Later a MRI demonstrated multiple small gallstones. The findings were discussed with the patient's surgeon, Dr. Lopez and also on-call surgeon Dr. Mejia. It was determined the patient does not need emergent cholecystectomy. The patient should be discharged home and followup as an outpatient for elective cholecystectomy. Findings and recommendations were related to the patient and the patient was discharged on December 02, 2018 with the recommendation to followup with her primary care provider in 102 weeks. The patient should followup with Dr. Lopez at a scheduled time for her elective cholecystectomy. OBJECTIVE: VITAL SIGNS ON DISCHARGE: Temperature 97.8, pulse 54, respirations 18, blood pressure 108/59, pulse ox 95% on room air. LABORATORY DATA ON THE DAY OF DISCHARGE: WBC 8, hemoglobin 10.8, hematocrit 34.6, platelets 263. Sodium 144, potassium 3.5, chloride 110, carbon dioxide 28, BUN 6, creatinine 0.79, fasting glucose 83, calcium 8.4, total bilirubin 0.3, AST 25, ALT 47, alkaline phosphatase 174, total protein 6, albumin 2.7, lipase 78 (on admission lipase is 2,002). Microbiology: Urine culture shows no growth chronically significant to more organisms. IMAGING STUDIES: Abdominal ultrasound on November 30, 2018 shows cholelithiasis without sonographic evidence of acute cholecystitis. MAGNETIC RESONANCE CHOLANGIOPANCREATOGRAPHY (MRCP) on November 30, 2018 shows cholelithiasis, otherwise essentially normal MRCP examination. DISCHARGE MEDICATIONS: - ibuprofen 200 mg by mouth four times a day as needed for pain DISCHARGE INSTRUCTIONS: 1. Discharge line. 2. Discharge home. 3. Activities as tolerated. 4. Regular diet as tolerated. The patient should followup with her primary care provider in 1-2 weeks. The patient should follow with Dr. Lopez for her elective cholecystectomy. DISCHARGE CONDITION: Fair. DISCHARGE TIME: 30 minutes.
== END 2018-12-02 13:58 | disposition home or self-care (01) | DRG 282 ==
LOC: M ED 18:01 → M ED INP 21:49 → M MS5PR 12-01 00:35
PROVIDERS: ADMIT Internal Medicine; ATTEND Internal Medicine
DX: K85.90 Acute pancreatitis without necrosis or infection, unspecified (principal); K80.20 Calculus of gallbladder without cholecystitis without obstruction

== ENCOUNTER 2018-12-25 07:04 | Day surgery (SDC) | payer OTHER ==
[~2018-12-25] VITALS: Ht 165.1 cm; Wt 114.3 kg
[~2018-12-25 07:04] MED LIST changes: +HYDR-3715 PO; +IBUP200C25 PO; +LR 1,000 ML IV SCH; -NORCOTAB PO; +ceFAZolin SOD 1 GM in D5W MINI-BAG PLUS 50 ML IV SCH
[2018-12-25 07:57] LABS: URINE PREG TEST NEGATIVE (NEGATIVE)
[2018-12-25] MEDS ORDERED: BUPIVACAINE/EPIN 0.25% 30 ML VIAL As Ordered ONE (08:47)
[2018-12-25] MEDS ORDERED: KETOROLAC 60 MG/2 ML VIAL (J1885) As Ordered ONE (09:02)
[2018-12-25] MEDS ORDERED: NEOSTIGMINE 10 MG/10 ML VIAL (J2710) As Ordered ONE (09:02)
[2018-12-25] MEDS ORDERED: ROCURONIUM BROMIDE 50 MG/5 ML VIAL As Ordered ONE (09:02)
[2018-12-25] MEDS ORDERED: LIDOCAINE 2% INJ 100 MG/5 ML SDV (FOR ANES.) As Ordered ONE (09:02)
[2018-12-25] MEDS ORDERED: GLYCOPYRROLATE INJ 0.2 MG/ML 2 ML VIAL As Ordered ONE (09:02)
[2018-12-25] MEDS ORDERED: fentaNYL 250 MCG/5 ML INJECTION (J3010) As Ordered ONE (09:02)
[2018-12-25] MEDS ORDERED: ONDANSETRON 4MG/2ML VIAL (J2405) As Ordered ONE (09:02)
[2018-12-25] MEDS ORDERED: dexameTHASONE 4 MG/ML 1ML VIAL (J1100) As Ordered ONE (09:02)
[2018-12-25] MEDS ORDERED: MIDAZOLAM INJ 2 MG/2 ML VIAL (J2250) As Ordered ONE (09:02)
[2018-12-25] MEDS ORDERED: PROPOFOL 200 MG/20 ML VIAL As Ordered ONE (09:02)
[2018-12-25] MEDS ORDERED: METOCLOPRAMIDE INJ 10MG/2ML VIAL (J2765) As Ordered ONE (09:02)
[2018-12-25] MEDS ORDERED: ACETAMINOPHEN 1000MG 100ML IV BTL (OFIRMEV) (J0131 PER 10MG) As Ordered ONE (10:05)
[2018-12-25] MEDS ORDERED: PERCOCET 5MG/325MG TAB As Ordered ONE (10:54)
[2018-12-25] MEDS ORDERED: ONDANSETRON 4MG/2ML VIAL (J2405) IV PRN ×2 (11:00)
[2018-12-25] MEDS ORDERED: METOCLOPRAMIDE INJ 10MG/2ML VIAL (J2765) IV PRN (11:00)
[2018-12-25] MEDS ORDERED: MEPERIDINE INJ 25 MG/ML VIAL (J2175) IV PRN (11:00)
[2018-12-25] MEDS ORDERED: NORCO, ANEXSIA 5/325MG TABLET (HYDROcodone/ACETAMINOPHEN) PO PRN (11:00)
[2018-12-25] MEDS ORDERED: PERCOCET 5MG/325MG TAB PO PRN (11:00)
[2018-12-25] MEDS ORDERED: LR 1,000 ML IV SCH ×2 (11:00)
[2018-12-25] MEDS ORDERED: fentaNYL 100 MCG/2 ML INJECTION (J3010) IV PRN (11:00)
[2018-12-25 12:40] VITALS: BP 139/78
[2018-12-25] MEDS ORDERED: KETOROLAC 30 MG/ML VIAL (J1885) IV SCH (16:00)
== END 2018-12-25 13:03 | disposition home or self-care (01) ==
LOC: M SDC 07:04
PROVIDERS: ATTEND Surgery
DX: K80.18 Calculus of gallbladder with other cholecystitis without obstruction (principal); K29.70 Gastritis, unspecified, without bleeding; G43.909 Migraine, unspecified, not intractable, without status migrainosus; F43.10 Post-traumatic stress disorder, unspecified; F41.9 Anxiety disorder, unspecified; F32.9 Major depressive disorder, single episode, unspecified
CPT/HCPCS: 47562; 84703; 88304; J0131; J0690; J1100; J1885; J2250; J2405; J2710; J2765; J3010

== ENCOUNTER 2019-08-24 04:10 | Emergency (ER) | payer OTHER ==
[~2019-08-24] VITALS: Ht 162.6 cm; Wt 113.6 kg
[2019-08-24 04:10] VITALS: BP 123/68
[~2019-08-24 04:10] MED LIST changes: -LR 1,000 ML IV SCH; -ceFAZolin SOD 1 GM in D5W MINI-BAG PLUS 50 ML IV SCH
== END 2019-08-24 05:30 | disposition left against medical advice (07) ==
LOC: M ED 04:10
DX: Z53.21 Procedure and treatment not carried out due to patient leaving prior to being seen by health care provider (principal)

== ENCOUNTER → 2020-07-28 | Outpatient (CLI) | payer OTHER ==
[2020-07-28 10:15] LABS: HEMOGLOBIN A1c 5.1 %
== END ==
LOC: M LAB 07:35
PROVIDERS: ATTEND Surgery
DX: Z86.39 Personal history of other endocrine, nutritional and metabolic disease (principal)

== ENCOUNTER → 2020-08-21 | Outpatient (CLI) | payer OTHER | LOC: M LABSMTC 14:34 | PROVIDERS: ATTEND Pediatrics | DX: Z20.828 Contact with and (suspected) exposure to other viral communicable diseases (principal) ==

== ENCOUNTER 2021-05-08 00:04 | Emergency (ER) | payer OTHER ==
[~2021-05-08] VITALS: Ht 162.6 cm; Wt 127.3 kg
--- NOTE | 2021-05-08 02:12 | REPVR ---
PROCEDURE INFORMATION: Exam: XR Left Ankle Exam date and time: 05/08/2021 1:05 AM Age: 21 years old Clinical indication: Injury or trauma; Fall; Swelling (edema); Ankle; Left; Additional info: Fell TECHNIQUE: Imaging protocol: XR Left ankle. Views: 3 or more views. COMPARISON: CR Ankle, complete BILATERAL 11/23/2015 8:00 PM FINDINGS: Bones/joints: Normal osseous alignment. No acute fracture. No asymmetric ankle mortise widening. Fifth metatarsal base is intact. No osteochondral lesion of the talar dome. No evidence of osseous tarsal coalition. Incidental accessory navicular bone; Joint spaces are well maintained. Soft tissues: No focal soft tissue swelling. IMPRESSION: 1. No acute fracture or osseous malalignment. 2. Developmental accessory navicular bone. This can be associated with posterior tibialis tendon pathology but is often incidental Electronically signed by: Tono Resendiz On 05/08/2021 02:11:49 AM
--- NOTE | 2021-05-08 02:14 | REPVR ---
PROCEDURE INFORMATION: Exam: XR Left Knee Exam date and time: 05/08/2021 1:05 AM Age: 21 years old Clinical indication: Pain; Knee; Left; Additional info: Fell TECHNIQUE: Imaging protocol: XR Left knee. Views: 4 or more views. COMPARISON: CR Knee, complete 06/03/2015 10:28 AM FINDINGS: Bones/joints: No radiographic evidence of joint effusion. Bones are aligned normally with normal mineralization. No fracture, evidence of stress fracture or osteochondral lesion. Joint spaces are well maintained. Soft tissues: No effacement of subcutaneous soft tissue planes. No abnormal soft tissue calcifications or masses. IMPRESSION: Normal knee radiographs. Electronically signed by: Tono Resendiz On 05/08/2021 02:14:39 AM
[2021-05-08 05:53] VITALS: BP 124/70
[2021-05-08] MEDS ORDERED: IBUP-1022 PO (06:15)
== END 2021-05-08 06:43 | disposition home or self-care (01) ==
LOC: M ED 00:04
DX: S93.402A Sprain of unspecified ligament of left ankle, initial encounter (principal); W10.8XXA Fall (on) (from) other stairs and steps, initial encounter; Y99.0 Civilian activity done for income or pay; Y92.9 Unspecified place or not applicable; Y93.9 Activity, unspecified

== ENCOUNTER → 2021-07-09 | Outpatient (REF) | LOC: M EMP 12:43 | PROVIDERS: ATTEND Family Medicine | DX: Z11.52 Encounter for screening for COVID-19 (principal) ==

== ENCOUNTER → 2021-07-12 | Outpatient (REF) | LOC: M EMP 08:18 | PROVIDERS: ATTEND Family Medicine | DX: Z20.822 Contact with and (suspected) exposure to COVID-19 (principal) ==

== ENCOUNTER → 2021-07-23 | Outpatient (REF) | LOC: M LABSMTC 11:09 | PROVIDERS: ATTEND Family Medicine | DX: Z20.822 Contact with and (suspected) exposure to COVID-19 (principal) ==

== ENCOUNTER → 2021-08-13 | Outpatient (REF) | LOC: M LABSMTC 10:41 | PROVIDERS: ATTEND Family Medicine | DX: Z11.52 Encounter for screening for COVID-19 (principal); Z20.822 Contact with and (suspected) exposure to COVID-19 ==

== ENCOUNTER → 2021-10-08 | Outpatient (REF) | LOC: M LABSMTC 12:28 | PROVIDERS: ATTEND Family Medicine | DX: Z11.52 Encounter for screening for COVID-19 (principal) ==

== ENCOUNTER → 2021-10-11 | Outpatient (REF) | LOC: M LABSMTC 12:08 | PROVIDERS: ATTEND Family Medicine | DX: Z20.822 Contact with and (suspected) exposure to COVID-19 (principal) ==

== ENCOUNTER → 2022-01-13 | Outpatient (REF) | LOC: M LABSMTC 10:54 | PROVIDERS: ATTEND Family Medicine | DX: Z11.52 Encounter for screening for COVID-19 (principal) ==

== ENCOUNTER → 2022-03-23 | Outpatient (CLI) | payer OTHER ==
[2022-03-23 15:33] LABS: BASO # 0.1 10^3/uL (0.0-0.2); BASO % 0.8 % (0.0-1.0); EOS # 0.3 10^3/uL (0.0-0.5); EOS % 4.3 % (0.0-3.0); HEMATOCRIT 42.2 % (36.0-47.0); HEMOGLOBIN 13.7 g/dl (12.0-15.5); LYMPH # 2.3 10^3/uL (1.5-5.0); LYMPH % 37.3 % (24.0-44.0); MEAN CORPUSCULAR HEMOGLOBIN 29.6 pg (27.0-33.0); MEAN CORPUSCULAR HGB CONC 32.5 g/dl (32.0-36.5); MEAN CORPUSCULAR VOLUME 91.1 fl (80.0-96.0); MONO # 0.6 10^3/uL (0.0-0.8); MONO % 9.6 % (2.0-8.0); NEUTROPHILS % 47.8 % (36.0-66.0); PLATELET COUNT, AUTOMATED 255 10^3/uL (150-450); RED BLOOD COUNT 4.63 10^6/uL (4.00-5.40); WHITE BLOOD COUNT 6.3 10^3/uL (4.0-10.0)
[2022-03-23 15:35] LABS: HEMATOCRIT 42.2 % (36.0-47.0)
[2022-03-23 16:13] LABS: HEMOGLOBIN A1c 4.7 %
[2022-03-23 16:15] LABS: ALBUMIN 3.7 GM/DL (3.2-5.2); ALT/SGPT 26 U/L (12-78); BILIRUBIN,TOTAL 0.8 MG/DL (0.2-1.0); BLOOD UREA NITROGEN 6 MG/DL (7-18); CALCIUM LEVEL 9.1 MG/DL (8.5-10.1); CARBON DIOXIDE LEVEL 24 MEQ/L (21-32); CHLORIDE LEVEL 106 MEQ/L (98-107); CREATININE FOR GFR 0.58 MG/DL (0.55-1.30); FERRITIN 27 NG/ML (8-252); GLOMERULAR FILTRATION RATE > 60.0 (>60); GLUCOSE, FASTING 67 MG/DL (70-100); IRON (FE) 63 UG/DL (50-170); MAGNESIUM LEVEL 1.6 MG/DL (1.8-2.4); PERCENT SATURATION 24.3 % (13.2-45.0); PHOSPHORUS LEVEL 3.4 MG/DL (2.5-4.9); POTASSIUM SERUM 3.5 MEQ/L (3.5-5.1); SODIUM LEVEL 142 MEQ/L (136-145); TOTAL IRON BINDING CAPACITY 259 UG/DL (250-450); TOTAL PROTEIN 6.3 GM/DL (6.4-8.2)
[2022-03-23 17:09] LABS: TOTAL 25(OH) VITAMIN D 17.2 NG/ML (30.0-100.0)
[2022-03-23 17:10] LABS: VITAMIN B12 LEVEL 392 PG/ML (247-911)
== END ==
LOC: M LAB 12:04
PROVIDERS: ATTEND Physician Assistant Surgical
DX: Z98.84 Bariatric surgery status (principal); K91.2 Postsurgical malabsorption, not elsewhere classified; K55.9 Vascular disorder of intestine, unspecified; Z86.39 Personal history of other endocrine, nutritional and metabolic disease

== ENCOUNTER → 2022-07-26 | Outpatient (REF) | payer OTHER | LOC: M LAB REF 16:24 | PROVIDERS: ATTEND Physician Assistant Medical | DX: R05.9 Cough, unspecified (principal) ==

== ENCOUNTER 2022-08-02 21:47 | Emergency (ER) | payer OTHER ==
[~2022-08-02] VITALS: Ht 162.6 cm; Wt 73.1 kg
[2022-08-03 04:08] LABS: BASO % 0.4 % (0.0-1.0); EOS # 0.1 10^3/uL (0.0-0.5); EOS % 0.7 % (0.0-3.0); HEMATOCRIT 41.5 % (36.0-47.0); HEMOGLOBIN 14.1 g/dl (12.0-15.5); LYMPH # 2.4 10^3/uL (1.5-5.0); LYMPH % 29.9 % (24.0-44.0); MEAN CORPUSCULAR HEMOGLOBIN 30.1 pg (27.0-33.0); MEAN CORPUSCULAR VOLUME 88.7 fl (80.0-96.0); MONO # 0.7 10^3/uL (0.0-0.8); MONO % 8.7 % (2.0-8.0); NEUTROPHILS # 4.9 10^3/uL (1.5-8.5); NEUTROPHILS % 60.2 % (36.0-66.0); PLATELET COUNT, AUTOMATED 321 10^3/uL (150-450); RED BLOOD COUNT 4.68 10^6/uL (4.00-5.40); WHITE BLOOD COUNT 8.2 10^3/uL (4.0-10.0)
[2022-08-03 04:18] LABS: CHLORIDE LEVEL 95 MMOL/L (98-107); POTASSIUM SERUM 3.9 MMOL/L (3.5-5.1); SODIUM LEVEL 137 MMOL/L (136-145)
[2022-08-03 04:19] LABS: HCG, SERUM QUALITATIVE NEGATIVE (NEGATIVE)
[2022-08-03 04:20] LABS: ALBUMIN 4.1 G/DL (3.2-5.2); CARBON DIOXIDE LEVEL 23 MMOL/L (20-31)
[2022-08-03 04:24] LABS: BLOOD UREA NITROGEN 8 MG/DL (9-23); CALCIUM LEVEL 9.7 MG/DL (8.5-10.1); GLUCOSE, FASTING 77 MG/DL (60-100); LIPASE 23 U/L (12-53)
[2022-08-03 04:25] LABS: ALKALINE PHOSPHATASE 55 U/L (46-116)
[2022-08-03 04:26] LABS: BILIRUBIN,DIRECT 0.5 MG/DL (<0.4); CREATININE FOR GFR 0.53 MG/DL (0.55-1.30); GLOMERULAR FILTRATION RATE > 60.0 (>60)
[2022-08-03 04:27] LABS: ALT/SGPT 23 U/L (7.0-40); AST/SGOT 21 U/L (<34); BILIRUBIN,TOTAL 1.1 MG/DL (0.3-1.2); TOTAL PROTEIN 7.5 G/DL (5.7-8.2)
[2022-08-03] MEDS ORDERED: GI COCKTAIL 50ML BTL(HYOSCYAMINE/MAALOX/LIDOCAINE VISCOUS)(1:3:1) PO ONE (08:10)
[2022-08-03] MEDS ORDERED: NS 1,000 ML IV ONE ×2 (08:10→12:30)
[2022-08-03] MEDS ORDERED: ONDANSETRON 4MG 2ML VIAL IV ONE ×2 (08:10→11:30)
[2022-08-03] MEDS: GASTROGRAFIN SOLUTION 30ML PO SCH ×2 (09:12→09:15)
[2022-08-03 09:14] LABS: CK-MB VALUE MASS < 1.0 NG/ML (<3.6)
[2022-08-03 09:16] LABS: CPK CREATINE PHOSPHOKINASE 36 U/L (34-145); MB/CK RELATIVE INDEX 2.77 (< OR =4)
[2022-08-03] MEDS ORDERED: ISOVUE-370 76% 100ML VIAL As Ordered ONE (10:34)
[2022-08-03] MEDS ORDERED: MULTIVITAMIN -ADULT INJECTION 10 ML, THIAMINE INJection 100 MG, FOLIC ACID 1 MG in NS 1... IV ONE (11:30)
[2022-08-03] MEDS ORDERED: PANTOPRAZOLE 40MG VIAL IV ONE (11:30)
[2022-08-03] MEDS ORDERED: PROT1TAB2 PO (13:08)
[2022-08-03] MEDS ORDERED: SUCR1SS PO (13:09)
[2022-08-03 16:18] VITALS: BP 134/78
== END 2022-08-03 16:23 | disposition home or self-care (01) ==
LOC: M ED 21:47
DX: R10.13 Epigastric pain (principal); E86.0 Dehydration; R11.2 Nausea with vomiting, unspecified; Z98.84 Bariatric surgery status; Z79.810 Long term (current) use of selective estrogen receptor modulators (SERMs); Z79.1 Long term (current) use of non-steroidal anti-inflammatories (NSAID)
CPT/HCPCS: 71046; 74177; 80048; 80076; 81000; 81015; 82550; 82553; 83605; 83690; 84703; 85025; 87086; 93005; 96365; 96366; 96375; 99284; C9113; J2405; J3411

== ENCOUNTER → 2022-08-05 | Outpatient (CLI) | payer OTHER ==
[~2022-08-05] MED LIST changes: +E-Z-HD 98% w/w 340GM SUSP BTL As Ordered ONE; +E-Z-PAQUE 96% w/w SUSP 176GM BTL As Ordered ONE; +PROT1TAB2 PO; +SUCR1SS PO
== END ==
LOC: M RAD 09:10
PROVIDERS: ATTEND Surgery
DX: R10.9 Unspecified abdominal pain (principal); Z98.84 Bariatric surgery status

== ENCOUNTER 2023-01-29 01:17 | Emergency (ER) | payer OTHER ==
[~2023-01-29] VITALS: Ht 162.6 cm; Wt 62.2 kg
[~2023-01-29 01:17] MED LIST changes: -E-Z-HD 98% w/w 340GM SUSP BTL As Ordered ONE; -E-Z-PAQUE 96% w/w SUSP 176GM BTL As Ordered ONE
[2023-01-29 07:53] LABS: BASO % 0.6 % (0.0-1.0); EOS # 0.1 10^3/uL (0.0-0.5); EOS % 1.9 % (0.0-3.0); HEMATOCRIT 39.7 % (36.0-47.0); LYMPH # 3.2 10^3/uL (1.5-5.0); MEAN CORPUSCULAR HEMOGLOBIN 30.7 pg (27.0-33.0); MEAN CORPUSCULAR HGB CONC 32.7 g/dl (32.0-36.5); MEAN CORPUSCULAR VOLUME 93.6 fl (80.0-96.0); MONO # 0.5 10^3/uL (0.0-0.8); MONO % 6.7 % (2.0-8.0); NEUTROPHILS # 3.2 10^3/uL (1.5-8.5); NEUTROPHILS % 45.7 % (36.0-66.0); PLATELET COUNT, AUTOMATED 245 10^3/uL (150-450); RED BLOOD COUNT 4.24 10^6/uL (4.00-5.40)
[2023-01-29] MEDS ORDERED: ONDANSETRON 4MG 2ML VIAL IV ONE (08:05)
[2023-01-29] MEDS ORDERED: NS 1,000 ML IV ONE (08:05)
[2023-01-29 08:32] LABS: LIPASE 26 U/L (12-53)
[2023-01-29 08:34] LABS: ALBUMIN 3.6 G/DL (3.2-5.2); ALKALINE PHOSPHATASE 52 U/L (46-116); ALT/SGPT 16 U/L (7.0-40); AST/SGOT 14 U/L (<34); BILIRUBIN,TOTAL 0.3 MG/DL (0.3-1.2); BLOOD UREA NITROGEN 12 MG/DL (9-23); CALCIUM LEVEL 9.2 MG/DL (8.5-10.1); CARBON DIOXIDE LEVEL 30 MMOL/L (20-31); CHLORIDE LEVEL 107 MMOL/L (98-107); CREATININE FOR GFR 0.67 MG/DL (0.55-1.30); GLOMERULAR FILTRATION RATE > 60.0 (>60); GLUCOSE, FASTING 85 MG/DL (60-100); SODIUM LEVEL 142 MMOL/L (136-145); TOTAL PROTEIN 6.3 G/DL (5.7-8.2)
[2023-01-29 08:35] LABS: THYROID STIMULATING HORMONE 2.056 uIU/ML (0.55-4.78); THYROXINE (T4) 7.5 UG/DL (4.5-10.9)
[2023-01-29 08:36] LABS: FREE THYROXINE INDEX 2.6 % (1.3-4.8); T UPTAKE 35.1 % (22.5-37.0); VITAMIN B12 LEVEL 502 PG/ML (211-911)
[2023-01-29] MEDS ORDERED: KETOROLAC 30 MG/ML 1ML VIAL IV ONE (09:35)
[2023-01-29] MEDS ORDERED: PROM25TA12 PO (10:01)
[2023-01-29 10:11] VITALS: BP 120/56
== END 2023-01-29 10:20 | disposition home or self-care (01) ==
LOC: M ED 01:17
DX: R42 Dizziness and giddiness (principal); G43.909 Migraine, unspecified, not intractable, without status migrainosus; R11.0 Nausea; K21.9 Gastro-esophageal reflux disease without esophagitis; F31.9 Bipolar disorder, unspecified; F17.200 Nicotine dependence, unspecified, uncomplicated; Z98.84 Bariatric surgery status; Z79.810 Long term (current) use of selective estrogen receptor modulators (SERMs); Z79.899 Other long term (current) drug therapy
CPT/HCPCS: 70450; 80053; 82607; 83690; 83735; 84436; 84443; 84479; 85025; 93005; 96361; 96374; 96375; 99284; J1885; J2405

== ENCOUNTER → 2023-02-03 | Outpatient (CLI) | payer OTHER ==
[~2023-02-03] MED LIST changes: +PROM25TA12 PO
[2023-02-03 09:24] LABS: HEMATOCRIT 38.3 % (36.0-47.0)
[2023-02-03 09:26] LABS: BASO # 0.1 10^3/uL (0.0-0.2); BASO % 0.6 % (0.0-1.0); EOS # 0.1 10^3/uL (0.0-0.5); HEMATOCRIT 39.1 % (36.0-47.0); HEMOGLOBIN 12.3 g/dl (12.0-15.5); LYMPH # 3.8 10^3/uL (1.5-5.0); LYMPH % 46.6 % (24.0-44.0); MEAN CORPUSCULAR HEMOGLOBIN 29.8 pg (27.0-33.0); MEAN CORPUSCULAR HGB CONC 31.5 g/dl (32.0-36.5); MEAN CORPUSCULAR VOLUME 94.7 fl (80.0-96.0); MONO # 0.6 10^3/uL (0.0-0.8); MONO % 6.9 % (2.0-8.0); NEUTROPHILS # 3.6 10^3/uL (1.5-8.5); NEUTROPHILS % 44.7 % (36.0-66.0); PLATELET COUNT, AUTOMATED 245 10^3/uL (150-450); RED BLOOD COUNT 4.13 10^6/uL (4.00-5.40); WHITE BLOOD COUNT 8.2 10^3/uL (4.0-10.0)
[2023-02-03 09:27] LABS: IRON (FE) 68 UG/DL (50-170); PERCENT SATURATION 25.3 % (13.2-45.0); TOTAL IRON BINDING CAPACITY 269 UG/DL (250-425)
[2023-02-03 09:28] LABS: ALBUMIN 3.8 G/DL (3.2-5.2); ALKALINE PHOSPHATASE 48 U/L (46-116); ALT/SGPT 19 U/L (7.0-40); AST/SGOT 12 U/L (<34); BILIRUBIN,TOTAL 0.3 MG/DL (0.3-1.2); BLOOD UREA NITROGEN 19 MG/DL (9-23); CALCIUM LEVEL 8.8 MG/DL (8.5-10.1); CARBON DIOXIDE LEVEL 30 MMOL/L (20-31); CHLORIDE LEVEL 107 MMOL/L (98-107); CREATININE FOR GFR 0.67 MG/DL (0.55-1.30); FERRITIN 16.3 NG/ML (7.3-270.7); GLOMERULAR FILTRATION RATE > 60.0 (>60); GLUCOSE, FASTING 83 MG/DL (60-100); MAGNESIUM LEVEL 1.8 MG/DL (1.8-2.4); PHOSPHORUS LEVEL 4.5 MG/DL (2.5-4.9); POTASSIUM SERUM 4.1 MMOL/L (3.5-5.1); SODIUM LEVEL 140 MMOL/L (136-145); TOTAL PROTEIN 6.4 G/DL (5.7-8.2)
[2023-02-03 09:29] LABS: TOTAL 25(OH) VITAMIN D 14.1 NG/ML (20.0-100.0); VITAMIN B12 LEVEL 487 PG/ML (211-911)
[2023-02-03 09:35] LABS: HEMOGLOBIN A1c 4.8 % (4.0-6.0)
== END ==
LOC: M LAB 07:57
PROVIDERS: ATTEND Physician Assistant Surgical
DX: K91.2 Postsurgical malabsorption, not elsewhere classified (principal); Z98.84 Bariatric surgery status; E55.9 Vitamin D deficiency, unspecified; Z86.39 Personal history of other endocrine, nutritional and metabolic disease

== ENCOUNTER 2023-06-07 23:19 | Inpatient (IN) | payer OTHER ==
[~2023-06-07] VITALS: Ht 162.6 cm; Wt 63.0 kg
[2023-06-07] MEDS ORDERED: OMEP40CA5 PO (23:32)
[2023-06-08 01:21] LABS: BASO % 0.5 % (0.0-1.0); EOS # 0.2 10^3/uL (0.0-0.5); HEMATOCRIT 35.5 % (36.0-47.0); LYMPH # 4.2 10^3/uL (1.5-5.0); LYMPH % 56.2 % (24.0-44.0); MEAN CORPUSCULAR HEMOGLOBIN 31.5 pg (27.0-33.0); MEAN CORPUSCULAR HGB CONC 33.8 g/dl (32.0-36.5); MEAN CORPUSCULAR VOLUME 93.2 fl (80.0-96.0); MONO # 0.5 10^3/uL (0.0-0.8); MONO % 6.3 % (2.0-8.0); NEUTROPHILS # 2.6 10^3/uL (1.5-8.5); NEUTROPHILS % 34.7 % (36.0-66.0); PLATELET COUNT, AUTOMATED 203 10^3/uL (150-450); RED BLOOD COUNT 3.81 10^6/uL (4.00-5.40); WHITE BLOOD COUNT 7.5 10^3/uL (4.0-10.0)
[2023-06-08 01:46] LABS: LIPASE 26 U/L (12-53)
[2023-06-08 01:48] LABS: ALBUMIN 3.3 G/DL (3.2-5.2); ALKALINE PHOSPHATASE 51 U/L (46-116); ALT/SGPT 19 U/L (7.0-40); AST/SGOT 18 U/L (<34); BILIRUBIN,DIRECT 0.1 MG/DL (<0.4); BILIRUBIN,TOTAL 0.3 MG/DL (0.3-1.2); BLOOD UREA NITROGEN 16 MG/DL (9-23); CALCIUM LEVEL 8.5 MG/DL (8.5-10.1); CARBON DIOXIDE LEVEL 30 MMOL/L (20-31); CHLORIDE LEVEL 107 MMOL/L (98-107); CREATININE FOR GFR 0.68 MG/DL (0.55-1.30); GLOMERULAR FILTRATION RATE > 60.0 (>60); GLUCOSE, FASTING 86 MG/DL (60-100); POTASSIUM SERUM 3.8 MMOL/L (3.5-5.1); SODIUM LEVEL 141 MMOL/L (136-145)
[2023-06-08 01:50] LABS: HCG, SERUM QUALITATIVE NEGATIVE (NEGATIVE)
[2023-06-08 09:18] LABS: RSV AMPLIFICATION NEGATIVE (NEGATIVE)
[2023-06-08] MEDS: GASTROGRAFIN SOLUTION 30ML PO SCH ×2 (10:45→11:23)
[2023-06-08] MEDS ORDERED: ONDA-83 PO (11:13)
[2023-06-08] MEDS ORDERED: ISOVUE-370 76% 100ML VIAL As Ordered ONE (11:50)
[2023-06-08] MEDS ORDERED: MORPHINE 2 MG/ML 1ML VIAL IV PRN (13:35)
[2023-06-08] MEDS ORDERED: METOCLOPRAMIDE INJ 10MG/2ML VIAL IV PRN (13:35)
[2023-06-08] MEDS ORDERED: PROMETHAZINE 25MG/ML 1ML VIAL IV PRN (13:35)
[2023-06-08] MEDS ORDERED: MULTIVITAMIN -ADULT INJECTION 10 ML, THIAMINE INJection 100 MG, FOLIC ACID 1 MG in NS 1... IV ONE (14:00)
[2023-06-08] MEDS ORDERED: MED REC IN PROGRESS XX SCH (14:20)
[2023-06-08] MEDS ORDERED: SUCR1TAB56 PO (14:31)
[2023-06-08] MEDS ORDERED: PROM25TA12 PO (14:33)
[2023-06-08] MEDS ORDERED: B-12100011 SL (14:34)
[2023-06-08] MEDS ORDERED: [UNRECOGNIZED DRUG - OTHER] (14:37)
[2023-06-08] MEDS ORDERED: D 50CAP3 PO (14:40)
[2023-06-08] MEDS ORDERED: VITMTA PO (14:42)
[2023-06-08] MEDS ORDERED: CALCIUM CITRATE PO (14:42)
[2023-06-08] MEDS ORDERED: IRON27TA2 PO (14:43)
[2023-06-08] MEDS ORDERED: FERR325T82 PO (14:47)
[2023-06-08] MEDS ORDERED: HOME MED LIST COMPLETE! XX SCH (14:55)
[2023-06-08 15:11] LABS: ALBUMIN 3.5 G/DL (3.2-5.2)
[2023-06-08 15:19] LABS: PREALBUMIN 17.2 MG/DL (10.0-40.0)
[2023-06-08 15:20] VITALS: BP 117/65; TEMP 97.7; O2SAT 99
[2023-06-08 15:21] LABS: FERRITIN 13.3 NG/ML (7.3-270.7); FOLATE 13.03 NG/ML (>5.4)
[2023-06-08] MEDS: traMADol 50 MG TAB PO PRN (15:27)
[2023-06-08] MEDS: PANTOPRAZOLE 40MG TAB (PROTONIX) PO SCH (15:27)
[2023-06-08] MEDS: ONDANSETRON 4MG 2ML VIAL IV PRN (16:17)
[2023-06-08 17:20] VITALS: BP 115/63
[2023-06-08] MEDS ORDERED: LORazepam 0.5 MG TAB PO ONE (17:20)
[2023-06-08 22:00] VITALS: BP 103/58; TEMP 97; O2SAT 99
[2023-06-09] MEDS ORDERED: NS 1,000 ML IV SCH
[2023-06-09 06:00] VITALS: BP 101/50; TEMP 97.7; O2SAT 96
[2023-06-09] MEDS: PANTOPRAZOLE 40MG TAB (PROTONIX) PO SCH (08:43)
[2023-06-09] MEDS: traMADol 50 MG TAB PO PRN (08:46)
[2023-06-09] MEDS: ONDANSETRON 4MG 2ML VIAL IV PRN (08:46)
[2023-06-09] MEDS ORDERED: ENOXAPARIN 40MG/0.4ML SYRINGE (J1650 PER 10MG) SC SCH (09:00)
[2023-06-09 14:04] VITALS: BP 110/66; TEMP 98.8; O2SAT 100
[2023-06-09] MEDS ORDERED: TRAM50TA2 PO (16:56)
== END 2023-06-09 18:28 | disposition home or self-care (01) | DRG 247 ==
LOC: M ED 23:19 → M ED INP 06-08 13:32 → M MS4PR 06-08 15:15
PROVIDERS: ADMIT Surgery; ATTEND Surgery
DX: K56.1 Intussusception (principal); Z93.4 Other artificial openings of gastrointestinal tract status; Z79.899 Other long term (current) drug therapy

== ENCOUNTER → 2023-07-12 | Outpatient (CLI) | payer OTHER ==
[~2023-07-12] MED LIST changes: +B-12100011 SL; +CALC250T PO; +CALCIUM CITRATE PO; +D 50CAP3 PO; +FERR325T82 PO; +IRON27TA2 PO; +OMEP40CA5 PO; +ONDA-83 PO; +SUCR1TAB56 PO; +TRAM50TA2 PO; +VITMTA PO; +[UNRECOGNIZED DRUG - OTHER]
== END ==
LOC: M LAB 07:59
PROVIDERS: ATTEND Surgery
DX: K28.9 Gastrojejunal ulcer, unspecified as acute or chronic, without hemorrhage or perforation (principal); R10.10 Upper abdominal pain, unspecified
CPT/HCPCS: 36415; G0480

== ENCOUNTER 2023-07-13 05:57 | Day surgery (SDC) | payer OTHER ==
[~2023-07-13] VITALS: Ht 162.6 cm; Wt 65.0 kg
[2023-07-13] MEDS ORDERED: ceFAZolin SOD 2 GM in IV 1 EA IV ONE (06:00)
[2023-07-13] MEDS ORDERED: HEPARIN SOD (PORCINE) 5000UNITS/ML 1ML VIAL/SYRINGE SQ ONE (06:00)
[2023-07-13] MEDS ORDERED: LR 1,000 ML IV SCH ×2 (06:20→09:05)
[2023-07-13] MEDS ORDERED: ROCURONIUM BROMIDE 50MG/5ML VIAL As Ordered ONE ×2 (07:01→08:15)
[2023-07-13] MEDS ORDERED: fentaNYL 100 MCG/2 ML INJECTION As Ordered ONE (07:01)
[2023-07-13] MEDS ORDERED: propofoL 200 MG/20 ML VIAL As Ordered ONE (07:01)
[2023-07-13] MEDS ORDERED: MIDAZOLAM INJ 2MG/2ML VIAL As Ordered ONE (07:01)
[2023-07-13] MEDS ORDERED: ONDANSETRON 4MG 2ML VIAL As Ordered ONE (07:02)
[2023-07-13] MEDS ORDERED: KETOROLAC 60MG 2ML VIAL As Ordered ONE (07:02)
[2023-07-13] MEDS ORDERED: LIDOCAINE 2% 100MG/5ML SDV (FOR ANES.) As Ordered ONE (07:02)
[2023-07-13] MEDS ORDERED: dexmedeTOMIDine (4MCG/ML)200MCG/50ML BTL (PRECEDEX) As Ordered ONE (07:24)
[2023-07-13] MEDS ORDERED: SCOPOLAMINE 1MG TRANSDERMAL PATCH TOP ONE ×2 (07:40)
[2023-07-13] MEDS ORDERED: GLYCOPYRROLATE INJ 0.2 MG/ML 2 ML VIAL As Ordered ONE (07:45)
[2023-07-13] MEDS ORDERED: propofoL 500 MG/50 ML VIAL As Ordered ONE (07:46)
[2023-07-13] MEDS ORDERED: METOCLOPRAMIDE INJ 10MG/2ML VIAL As Ordered ONE (07:53)
[2023-07-13] MEDS ORDERED: HYDROmorphone HCL 2MG/ML 1ML VIAL As Ordered ONE (08:12)
[2023-07-13] MEDS ORDERED: KETAMINE HCL 200MG/20ML VIAL As Ordered ONE (08:22)
[2023-07-13] MEDS ORDERED: SUGAMMADEX SODIUM 500 MG/5 ML VIAL (BRIDION) As Ordered ONE (08:38)
[2023-07-13] MEDS ORDERED: ONDANSETRON 4MG 2ML VIAL IV PRN (09:05)
[2023-07-13] MEDS ORDERED: fentaNYL 100 MCG/2 ML INJECTION IV PRN (09:05)
[2023-07-13] MEDS ORDERED: oxyCODONE 5MG TAB PO PRN (09:05)
[2023-07-13] MEDS ORDERED: HYDROMORPHONE HCL 0.5 MG/ 0.5 ML SYRINGE IV PRN (09:05)
[2023-07-13] MEDS ORDERED: NALOXONE INJ 0.4MG/1ML VIAL As Ordered ONE (09:07)
[2023-07-13] MEDS ORDERED: flumazeniL 0.5MG/5ML VIAL As Ordered ONE (09:12)
[2023-07-13 10:45] VITALS: BP 112/61; TEMP 97.4; O2SAT 98
== END 2023-07-13 11:44 | disposition home or self-care (01) ==
LOC: M SDC 05:57
PROVIDERS: ATTEND Surgery
DX: R10.9 Unspecified abdominal pain (principal); G89.29 Other chronic pain; Z98.84 Bariatric surgery status; F43.10 Post-traumatic stress disorder, unspecified; Z79.899 Other long term (current) drug therapy
CPT/HCPCS: 43235; 49320; 81025; J0665; J1100; J1170; J1885; J2250; J2310; J2405; J2765; J3010

== ENCOUNTER → 2023-08-18 | Outpatient (REF) | payer OTHER ==
[2023-08-18 18:07] LABS: PERCENT SATURATION 27.5 % (13.2-45.0)
== END ==
LOC: M LAB REF 16:51
PROVIDERS: ATTEND Nurse Practitioner Family
DX: R20.8 Other disturbances of skin sensation (principal)

== ENCOUNTER 2023-12-22 00:25 | Emergency (ER) | payer OTHER ==
[~2023-12-22] VITALS: Ht 162.6 cm; Wt 58.0 kg
[2023-12-22 01:19] LABS: BASO % 0.3 % (0.0-1.0); EOS % 0.2 % (0.0-3.0); HEMATOCRIT 37.7 % (36.0-47.0); HEMOGLOBIN 12.8 g/dl (12.0-15.5); LYMPH # 1.9 10^3/uL (1.5-5.0); LYMPH % 17.1 % (24.0-44.0); MEAN CORPUSCULAR HEMOGLOBIN 31.1 pg (27.0-33.0); MEAN CORPUSCULAR VOLUME 91.7 fl (80.0-96.0); MONO # 0.7 10^3/uL (0.0-0.8); MONO % 6.3 % (2.0-8.0); NEUTROPHILS # 8.4 10^3/uL (1.5-8.5); NEUTROPHILS % 75.8 % (36.0-66.0); PLATELET COUNT, AUTOMATED 272 10^3/uL (150-450); RED BLOOD COUNT 4.11 10^6/uL (4.00-5.40); WHITE BLOOD COUNT 11.1 10^3/uL (4.0-10.0)
[2023-12-22 01:38] LABS: ETHYL ALCOHOL (ETHANOL) 0.004 % (0.000-0.010)
[2023-12-22 01:40] LABS: ALBUMIN 3.9 G/DL (3.2-5.2); ALKALINE PHOSPHATASE 68 U/L (46-116); ALT/SGPT 10 U/L (7.0-40); AST/SGOT 16 U/L (<34); BILIRUBIN,DIRECT 0.4 MG/DL (<0.4); BILIRUBIN,TOTAL 0.9 MG/DL (0.3-1.2); BLOOD UREA NITROGEN 17 MG/DL (9-23); CALCIUM LEVEL 9.4 MG/DL (8.5-10.1); CARBON DIOXIDE LEVEL 24 MMOL/L (20-31); CHLORIDE LEVEL 106 MMOL/L (98-107); CK-MB VALUE MASS 1.4 NG/ML (<3.6); CPK CREATINE PHOSPHOKINASE 218 U/L (34-145); CREATININE FOR GFR 1.01 MG/DL (0.55-1.30); GLOMERULAR FILTRATION RATE > 60.0 (>60); GLUCOSE, FASTING 149 MG/DL (60-100); MB/CK RELATIVE INDEX 0.64 (< OR =4); POTASSIUM SERUM 3.3 MMOL/L (3.5-5.1); SALICYLATE LEVEL < 3.0 MG/DL (<30); SODIUM LEVEL 139 MMOL/L (136-145)
[2023-12-22 01:42] LABS: THYROID STIMULATING HORMONE 1.934 uIU/ML (0.55-4.78)
[2023-12-22 02:18] LABS: HCG, SERUM QUALITATIVE NEGATIVE (NEGATIVE)
[2023-12-22] MEDS: POTASSIUM CHLORIDE 10MEQ SR TABLET PO ONE (03:17)
[2023-12-22 03:50] LABS: CK-MB VALUE MASS 1.4 NG/ML (<3.6)
[2023-12-22 03:51] LABS: MB/CK RELATIVE INDEX 0.66 (< OR =4)
[2023-12-22 03:55] LABS: AMPHETAMINES LEVEL URINE NEGATIVE (NEGATIVE); BARBITURATES URINE NEGATIVE (NEGATIVE); BENZODIAZEPINES URINE NEGATIVE (NEGATIVE); COCAINE METABOLITE URINE NEGATIVE (NEGATIVE); METHADONE URINE NEGATIVE (NEGATIVE); OPIATES URINE NEGATIVE (NEGATIVE); PHENCYCLIDINE URINE NEGATIVE (NEGATIVE)
[2023-12-22 03:58] LABS: CANNABINOIDS URINE POSITIVE (NEGATIVE)
[2023-12-22 05:30] VITALS: BP 124/68; TEMP 98; O2SAT 97
[2023-12-22 05:40] LABS: CK-MB VALUE MASS 1.5 NG/ML (<3.6)
[2023-12-22 05:46] LABS: MB/CK RELATIVE INDEX 0.69 (< OR =4)
== END 2023-12-22 06:23 | disposition home or self-care (01) ==
LOC: M ED 00:25
DX: F19.10 Other psychoactive substance abuse, uncomplicated (principal); K21.9 Gastro-esophageal reflux disease without esophagitis; G43.909 Migraine, unspecified, not intractable, without status migrainosus; E66.9 Obesity, unspecified; Z98.84 Bariatric surgery status; Z90.49 Acquired absence of other specified parts of digestive tract; F17.200 Nicotine dependence, unspecified, uncomplicated; Z79.899 Other long term (current) drug therapy

== ENCOUNTER → 2023-12-28 | Outpatient (REF) | payer OTHER ==
[2023-12-28 19:03] LABS: BLOOD UREA NITROGEN 9 MG/DL (9-23); CALCIUM LEVEL 9.6 MG/DL (8.5-10.1); CARBON DIOXIDE LEVEL 30 MMOL/L (20-31); CHLORIDE LEVEL 103 MMOL/L (98-107); CREATININE FOR GFR 0.71 MG/DL (0.55-1.30); GLOMERULAR FILTRATION RATE > 60.0 (>60); GLUCOSE, FASTING 80 MG/DL (60-100); POTASSIUM SERUM 3.9 MMOL/L (3.5-5.1); SODIUM LEVEL 141 MMOL/L (136-145)
== END ==
LOC: M LAB REF 16:27
PROVIDERS: ATTEND Nurse Practitioner Family
DX: E87.6 Hypokalemia (principal)

== ENCOUNTER → 2024-06-29 | Outpatient (CLI) | payer OTHER, SELFPAY | LOC: M LAB 14:21 | PROVIDERS: ATTEND Physician Assistant | DX: Z34.90 Encounter for supervision of normal pregnancy, unspecified, unspecified trimester (principal); Z3A.00 Weeks of gestation of pregnancy not specified ==

== ENCOUNTER → 2025-07-28 | Outpatient (REF) | payer MEDICAID, OTHER ==
[~2025-07-28] MED LIST changes: -IBUP-1022 PO; +IBUP600T42 PO
== END ==
LOC: M PLALAB 08:29
PROVIDERS: ATTEND Nurse Practitioner Family
DX: Z34.80 Encounter for supervision of other normal pregnancy, unspecified trimester (principal)

== ENCOUNTER → 2025-08-04 | Outpatient (CLI) | payer OTHER ==
[2025-08-04 13:59] LABS: PLATELET COUNT, AUTOMATED 277 10^3/uL (150-450)
[2025-08-04 14:31] LABS: IRON (FE) 16 UG/DL (50-170); PERCENT SATURATION 3.9 % (13.2-45.0)
[2025-08-04 14:32] LABS: VITAMIN B12 LEVEL 396 PG/ML (211-911)
[2025-08-04 14:33] LABS: TOTAL 25(OH) VITAMIN D 34.4 NG/ML (20.0-100.0)
[2025-08-04 14:37] LABS: ESTIMATED AVERAGE GLUCOSE 97.0 MG/DL (60-110)
[2025-08-04 14:45] LABS: Trichomonas vaginalis (AMP) NOT DETECTED (NEGATIVE)
[2025-08-04 15:04] LABS: HIV 1&2 SCREEN NEGATIVE (NEGATIVE)
[2025-08-04 15:09] LABS: GC DNA AMPLIFICATION NEGATIVE (NEGATIVE)
[2025-08-04 15:12] LABS: HEPATITIS C VIRUS ABY INDEX < 0.02 INDEX (<0.8)
== END ==
LOC: M LAB 12:44
PROVIDERS: ATTEND Nurse Practitioner Family
DX: O99.840 Bariatric surgery status complicating pregnancy, unspecified trimester (principal)